=== PATIENT | male | born 1940 | race Caucasian/White ===

== ENCOUNTER → 2019-04-24 | Outpatient (CLI) | payer MEDICARE, OTHER ==
--- NOTE | 2019-04-27 13:17 | RADRPT ---
Echocardiogram Report Patient Name: JENNIFER DOZIERFPatient ID: [id number] : 1940 (78y [id number])Study Date: 04/24/2019 2:02:42 PM Gender: MAccession #: [id number] Tech: Jean Marie Craig [facility] Location: EKG Ref.Physician: GREG JAFFE Height(Cm): BSA: Weight(Kg): Quality: Technically Difficult StudyOrder Physician: GREG JAFFE Account #: Procedures: Echocardiographic Report: Transthoracic echocardiogram with complete 2D, M-Mode, and doppler examination. Indications: Murmur. Measurements: 2D/M Mode Doppler Measurement Value Normal Range Measurement Value Normal Range LVIDd 2D 3.5 [ 4.2 - 5.8 ] cm SHARDA Vmax 0.5 [ 2.0 - 4.0 ] cm2 LVIDs 2D 2.2 [ 2.5 - 4.0 ] cm SHARDA VTI 0.5 [ 2.0 - 4.0 ] cm2 LVPWd 2D 0.9 [ 0.6 - 1.0 ] cm AV Mean Kaushik 3.3 [ 70.0 - 90.0 ] cm/sec IVSd 2D 1.7 [ 0.6 - 1.0 ] cm AV Mean PG 51.0 [ 2.0 - 4.0 ] mmHg IVS/LVPW 2D 2.0 ratio AV Peak Kaushik 4.7 [ 100.0 - 170.0 ] cm/sec AoR Diam 2D 2.8 [ 2.6 - 3.4 ] cm AV Peak PG 88.0 [ 2.0 - 9.0 ] mmHg LA/Ao 2D 1 ratio AV VTI 115.0 cm LA Dimen 2D 3.4 [ 3.0 - 4.0 ] cm LVOT Mean Kaushik 0.5 [ 60.0 - 80.0 ] cm/sec LVOT Area 3.1 cm2 LVOT Mean PG 1.0 [ 1.0 - 3.0 ] mmHg LVOT Peak Kaushik 0.8 [ 70.0 - 110.0 ] cm/sec LVOT Peak PG 3.0 [ 2.0 - 6.0 ] mmHg LVOT VTI 18.0 [ 20.0 - 30.0 ] cm MV E Peak Kaushik 0.8 [ 60.0 - 130.0 ] cm/sec MV A Peak Kaushik 1.3 [ 100.0 - 120.0 ] cm/sec MV E/A 0.6 [ 0.8 - 1.5 ] ratio MV Decel Time 313 [ 104 - 258 ] msec MV E/A 0.6 [ 0.8 - 1.5 ] ratio TR Peak Kaushik 2.0 [ 100.0 - 280.0 ] cm/sec TR Peak PG 17.0 mmHg RVSP 25.0 [ 10.0 - 36.0 ] mmHg RA Pressure 8.0 mmHg Findings: Left Ventricle: Lower limits of normal systolic function. Normal left ventricular cavity size. Moderate asymmetric septal hypertrophy. Ejection fraction is visually estimated at 50 %. Tissue Doppler/Mitral Doppler indices are consistent with impaired relaxation (Stage I diastolic dysfunction). Right Ventricle: Normal right ventricular size. Normal right ventricular systolic function. Left Atrium: The left atrium is normal in size. Right Atrium: The right atrium is normal in size. Mitral Valve: Mild mitral leaflet calcification. Mild mitral annular calcification. Trace mitral regurgitation. Aortic Valve: Severe aortic stenosis. Aortic valve Max velocity 4.69 m/sec. Max PG 3.35 mmHg. Mean PG 51.00 mmHg. Aortic valve area 0.48 cm2. Aortic cusps appear severely calcified. Tricuspid Valve: Normal appearance of the tricuspid valve. The estimated Peak RVSP is 25 mmHg. There is trace tricuspid regurgitation. Pericardium: Trivial pericardial effusion. There is an anterior echo free space consistent with epicardial fat pad. Aorta: Normal aortic root. IVC: Dilated IVC with respiratory collapse consistent with elevated right atrial pressure. Conclusions: Lower limits of normal systolic function. Normal left ventricular cavity size. Moderate asymmetric septal hypertrophy. Ejection fraction is visually estimated at 50 %. Tissue Doppler/Mitral Doppler indices are consistent with impaired relaxation (Stage I diastolic dysfunction). Mild mitral leaflet calcification. Mild mitral annular calcification. Trace mitral regurgitation. Severe aortic stenosis. Aortic valve Max velocity 4.69 m/sec. Max PG 3.35 mmHg. Mean PG 51.00 mmHg. Aortic valve area 0.48 cm2. Aortic cusps appear severely calcified. Normal appearance of the tricuspid valve. The estimated Peak RVSP is 25 mmHg. There is trace tricuspid regurgitation. Electronically Signed By: Greg Jaffe 2019-04-27 13:17:14 PDT
== END | disposition home or self-care (01) ==
LOC: EKG 13:29
PROVIDERS: ATTEND Internal Medicine
DX: R01.1 Cardiac murmur, unspecified (principal)
CPT/HCPCS: 93306